=== PATIENT | female | born 1970 | race Caucasian/White ===

== ENCOUNTER → 2017-08-21 | Outpatient (CLI) | payer OTHER ==
[~2017-08-21] MED LIST: CAL-CITRATE PLU1 TAB PO; CALCIUM 500500 M2 PO; COCONUT OIL 1 ML1 ML; CYTOMEL 5MC5 MCG/TAB PO; DAILY VITAMIN1 TAB PO; ESTER-C 5001 TAB PO; GARLIC1 TAB PO; MAGNESIUM PO; MULTI VITAMINS1 TAB PO; OMEGA 31000 MG PO; PERCOCET 325 MG1 TA2 PO; PHENERGAN 25 TA25 MG PO; PSYLLIUM HUSK PO; SILYMARIN1 POW; SYNTHROID0.125 MG PO; THYROXIN PO; VITAMIN D31000 IU PO; VITEX PO; VSL#3112.5 Bill PO; [UNRECOGNIZED DRUG - OTHER]; [UNRECOGNIZED DRUG - OTHER]; [UNRECOGNIZED DRUG - OTHER]; [UNRECOGNIZED DRUG - OTHER]; [UNRECOGNIZED DRUG - OTHER]; [UNRECOGNIZED DRUG - REMARK]; magnesium potassium
== END ==
LOC: COL.PUL 08-20 13:00
DX: J45.20 Mild intermittent asthma, uncomplicated (principal)

== ENCOUNTER → 2018-02-03 | Outpatient (CLI) | payer OTHER | LOC: MC.RAD 12:59 | DX: Z12.31 Encounter for screening mammogram for malignant neoplasm of breast (principal) ==

== ENCOUNTER → 2018-07-09 | Outpatient (CLI) | payer OTHER | LOC: COL.RAD 09:45 | DX: R10.11 Right upper quadrant pain (principal) ==

== ENCOUNTER → 2019-03-15 | Outpatient (CLI) | payer OTHER | LOC: COL.RAD 12:19 | DX: E03.9 Hypothyroidism, unspecified (principal); E04.2 Nontoxic multinodular goiter ==

== ENCOUNTER → 2020-11-17 | Outpatient (CLI) | payer OTHER | LOC: MC.RAD 11-06 10:00 | DX: Z12.31 Encounter for screening mammogram for malignant neoplasm of breast (principal) ==

== ENCOUNTER → 2021-05-02 | Outpatient (CLI) | payer OTHER | LOC: COL.RAD 07:50 | DX: R19.8 Other specified symptoms and signs involving the digestive system and abdomen (principal); R14.0 Abdominal distension (gaseous); R14.1 Gas pain ==

== ENCOUNTER → 2021-05-15 | Outpatient (CLI) | payer OTHER | LOC: COL.RAD 05-14 08:00 | DX: R14.0 Abdominal distension (gaseous) (principal); R14.1 Gas pain; R93.5 Abnormal findings on diagnostic imaging of other abdominal regions, including retroperitoneum | CPT/HCPCS: Q9967 ==